=== PATIENT | female | born 1955 | race Caucasian/White ===

== ENCOUNTER → 2017-05-10 | Outpatient (CLI) | payer MEDICAID ==
[~2017-05-10] MED LIST: AMLO5TAB PO; BENADRYL25 M1 PO; CEPHALEXIN500 MG PO; ELMIRON100 MG OR; ENABLEX15 MG PO; GLIMEPIRIDE1 MG PO; MACROBID 100MG100 MG PO; MEDROL 4MG. DOSE4 MG PO; NADOLOL40 MG PO; NAPROSYN 500MG500 MG PO
[2017-05-10 09:56] LABS: HEMOGLOBIN 13.9 g/dL (12.2-16.2); LYMPH # 2.7 K/mm3 (0.7-4.5); LYMPH % 27.1 % (10-50.0)
[2017-05-10 11:14] LABS: BUN 27 mg/dL (7-18)
[2017-05-10 11:16] LABS: GFR (ESTIMATED) 38 ML/MIN (59-)
== END ==
LOC: LAB 09:27
PROVIDERS: Nurse Practitioner Family
DX: E11.9 Type 2 diabetes mellitus without complications (principal); I10 Essential (primary) hypertension; E78.5 Hyperlipidemia, unspecified; E03.9 Hypothyroidism, unspecified; N30.20 Other chronic cystitis without hematuria; K58.0 Irritable bowel syndrome with diarrhea

== ENCOUNTER → 2017-09-19 | Outpatient (CLI) | payer MEDICAID ==
[2017-09-19 14:11] LABS: BUN 35 mg/dL (7-18)
[2017-09-19 14:12] LABS: GFR (ESTIMATED) 27 ML/MIN (59-)
== END ==
LOC: LAB 12:08
PROVIDERS: Nurse Practitioner Family
DX: E11.9 Type 2 diabetes mellitus without complications (principal); E04.9 Nontoxic goiter, unspecified